=== PATIENT | male | born 1960 | race Caucasian/White ===

== ENCOUNTER → 2020-03-19 | Outpatient (CLI) | payer OTHER ==
--- NOTE | 2020-03-19 10:22 | MR ---
EXAMINATION TYPE: MR shoulder LT wo con DATE OF EXAM: 03/19/2020 COMPARISON: None HISTORY: Pain in left shoulder TECHNIQUE: Multiplanar, multisequence imaging of the left shoulder is performed without contrast. FINDINGS: Exam was not completed due to patient pain Rotator Cuff: There is abnormal increased signal noted within the rotator cuff. Undersurface signal i s noted on coronal image 17 suggesting a partial undersurface tear. Acromioclavicular Joint: Hypertrophic changes present. There is a distal acromial spur. Glenohumeral Joint: Osteoarthritic changes present, there is spurring, remodeling at the glenohumeral joint. There is subchondral geode formation present in the bony labrum Labrum: Labrum shows some abnormal increased intrinsic signal, there may be degenerative fraying, dif ficult to exclude tear Biceps Tendon: The long head of biceps is in normal location within bicipital groove. Bone marrow signal: Pseudocysts present within the humeral head. Other: Small joint effusion. Difficult to exclude synovial osteochondromatosis, loose body IMPRESSION: Exam is limited. Osteoarthritic changes. Findings suggest partial tear the rotator cuff as described. Correlate for impingement. Additional findings above.
== END | disposition home or self-care (01) ==
LOC: RADMRIMAIN 07:49
PROVIDERS: ATTEND Orthopaedic Surgery
DX: M19.012 Primary osteoarthritis, left shoulder (principal); M85.612 Other cyst of bone, left shoulder

== ENCOUNTER 2022-06-16 07:03 | Day surgery (SDC) | payer BC, OTHER ==
[~2022-06-16 07:03] MED LIST: ACETAMINOPHEN TAB 500 MG TAB PO PRN; DEXAMETHASONE SOD PHOSPHATE 4 MG/ML 1 ML VIAL IV ONE; HEPARIN SODIUM,PORCINE/PF 5,000 UNIT/0.5 ML SYRINGE SQ PRN; HYDROmorphone 0.5 MG/0.5 ML SYRINGE IVP PRN; LACTATED RINGERS 1,000 ML IV SCH; MIDAZOLAM 2 MG/2 ML VIAL IV PRN; ONDANSETRON 4 MG/2 ML VIAL IVP ONE; Pre Op ABX Message 1 EACH MISC MISCELLANE ONE; SCOPOLAMINE 1 MG/72 HR PATCH TRANSDERM ONE
[2022-06-16 07:25] VITALS: TEMP 97
--- NOTE | 2022-06-16 07:27 | P.GSHP ---
History of Present Illness H&P Date: 06/16/22 Chief Complaint: Right posterior neck mass 62-year-old male here for excision right posterior neck mass. Mass first noticed about 5-6 months ago. Increasing in size. Mild pain at times. No overlying skin changes. No history of similar events. Past Medical History Past Medical History: Hyperlipidemia, Hypertension Additional Past Medical History / Comment(s): arthritis from sports injuries. left shoulder cortisone shot. rt neck lipoma, a little achey at times. + Covid without sx early 2021. History of Any Multi-Drug Resistant Organisms: None Reported Additional Past Surgical History / Comment(s): rt knee surgery arthroscopic, left rotator cuff surgery, rt shoulder surgery(open). Past Anesthesia/Blood Transfusion Reactions: No Reported Reaction Additional Past Anesthesia/Blood Transfusion Reaction / Comment(s): no blood transfusions Smoking Status: Never smoker - Past Family History Father Family Medical History: Dementia Additional Family Medical History / Comment(s): pacemaker Mother Additional Family Medical History / Comment(s): parkinsons Medications and Allergies Home Medications Medication Instructions Recorded Confirmed Type Atorvastatin [Lipitor] 20 mg PO DAILY 06/12/22 06/12/22 History Losartan Potassium 100 mg PO DAILY 06/12/22 06/12/22 History amLODIPine [Norvasc] 10 mg PO DAILY 06/12/22 06/12/22 History hydroCHLOROthiazide 25 mg PO DAILY 06/12/22 06/12/22 History Allergies Allergy/AdvReac Type Severity Reaction Status Date / Time No Known Allergies Allergy Verified 06/16/22 07:19 Surgical - Exam Vital Signs Temp Pulse Resp BP Pulse Ox 97.0 F L 68 16 150/70 97 06/16/22 07:23 06/16/22 07:23 06/16/22 07:23 06/16/22 07:23 06/16/22 07:23 Physical exam: General: Well-developed, well-nourished HEENT: Normocephalic, sclerae nonicteric, right posterior neck with 3 x 2 synov ator subcutaneous mildly tender mass Abdomen: Nontender, nondistended Extremities: No edema Neuro: Alert and oriented Assessment and Plan (1) Neck mass Narrative/Plan: 62-year-old male with right posterior neck mass. We'll proceed with surgical excision at this time. Risks of bleeding, infection, recurrence, nerve injury reviewed. He understands and wishes to proceed. Current Visit: Yes Status: Acute Code(s): R22.1 - LOCALIZED SWELLING, MASS AND LUMP, NECK SNOMED Code(s): 613499735
[2022-06-16] MEDS ORDERED: LIDOCAINE 1% (10MG/ML) FOR IV START INTRADERMA ONE (07:44)
[2022-06-16] MEDS ORDERED: KETAMINE 10 MG/ML 20 ML VIAL ONE (08:11)
[2022-06-16] MEDS ORDERED: BUPIVACAIN-EPI 0.25%-1:200,000 30 ML VIAL SQ ONE ×2 (08:11→08:37)
[2022-06-16] MEDS ORDERED: fentaNYL (PF) 50 MCG/ML 2 ML AMP ONE (08:11)
[2022-06-16] MEDS ORDERED: PROPOFOL 10 MG/ML 20 ML VIAL IV ONE (08:11)
[2022-06-16] MEDS ORDERED: MIDAZOLAM 2 MG/2 ML VIAL ONE (08:11)
--- NOTE | 2022-06-16 09:08 | P.OP ---
Date of Procedure: 06/16/22 Procedure(s) Performed: PREOPERATIVE DIAGNOSIS: Right posterior neck mass POSTOPERATIVE DIAGNOSIS: Right posterior neck lipomatous mass 3.2 x 3 cm PROCEDURE: Excision right posterior neck lipoma, intermediate closure SURGEON: Navya EBL: 2 mL ANESTHESIA: Sedation and local COMPLICATIONS: None OPERATIVE PROCEDURE: Patient placed in the left cubitus position. Right posterior neck prepped and draped sterilely. Skin infiltrated with 1% lidocaine. Incision made overlying the palpable mass. Dissection through the subcutaneous tissues took place using electrocautery. The patient's lipomatous mass was fairly deep almost 2 cm deep to the skin surface. His measured 3.2 x 3 cm. This was excised using blunt and electrocautery. This was fully excised and sent to pathology. The subcutaneous tissues were then closed using interrupted 3-0 Vicryl sutures. The skin was closed using a running 4-0 Monocryl subcuticular suture. Skin glue was then applied. Length of intermediate closure 5 cm. DISPOSITION: Stable to recovery room
[2022-06-16 09:24] VITALS: BP 124/72; PULSE 58; RESP 16
== END 2022-06-16 09:57 | disposition home or self-care (01) ==
LOC: OR 07:03
PROVIDERS: ATTEND Surgery
DX: D17.0 Benign lipomatous neoplasm of skin and subcutaneous tissue of head, face and neck (principal); I10 Essential (primary) hypertension; E78.5 Hyperlipidemia, unspecified; M19.90 Unspecified osteoarthritis, unspecified site; Z86.16 Personal history of COVID-19; Z98.890 Other specified postprocedural states; Z81.8 Family history of other mental and behavioral disorders; Z79.02 Long term (current) use of antithrombotics/antiplatelets; Z79.899 Other long term (current) drug therapy
CPT/HCPCS: 21552; 88304; J2250; J1100; J0690; J2405; J3010; J2704; J1644

== ENCOUNTER → 2023-12-29 | Outpatient (CLI) | payer BC ==
--- NOTE | 2023-12-29 17:25 | CA ---
Transthoracic Echo Report Name: Bebeto Chen Age: 63 Gender: M : 1960 Exam Date: 12/29/2023 16:09 Exam Location: [facility] Ht (in): 75 Wt (lb): 300 Ordering Physician: Paul Wheat MD Attending/Referring Phys: Suad Henriquez [facility] Orthotist/Prosthetist Luma Trevizo RDCS Procedure CPT: Indications: I49.1 ATRIAL PREMATURE DEPOLARIZATION Cardiac Hx: Technical Quality: Fair Contrast 1: Total Dose (mL): Contrast 2: Total Dose (mL): MEASUREMENTS (Male / Female) Normal Values 2D ECHO LV Diastolic Diameter PLAX 4.9 cm 4.2 - 5.9 / 3.9 - 5.3 cm LV Systolic Diameter PLAX 3.1 cm IVS Diastolic Thickness 1.3 cm 0.6 - 1.0 / 0.6 - 0.9 cm LVPW Diastolic Thickness 1.3 cm 0.6 - 1.0 / 0.6 - 0.9 cm LV Relative Wall Thickness 0.5 RV Internal Dim ED PLAX 3.4 cm LA Systolic Diameter LX 5.0 cm 3.0 - 4.0 / 2.7 - 3.8 cm LV Diastolic Volume MOD BP 69.2 cm??? 67 - 155 / 56 - 104 cm??? LV Systolic Volume MOD BP 30.7 cm??? 22 - 58 / 19 - 49 cm??? LV Ejection Fraction MOD BP 55.7 % >= 55 % LV Cardiac Index MOD BP 959.0 cm???/min???m??? LV Diastolic Volume MOD 4C 83.9 cm??? LV Systolic Volume MOD 4C 30.8 cm??? LV Ejection Fraction MOD 4C 63.3 % LV Cardiac Index MOD 4C 1322.8 cm???/min???m??? LV Diastolic Length 4C 7.6 cm LV Systolic Length 4C 6.1 cm LV Diastolic Volume MOD 2C 53.0 cm??? LV Systolic Volume MOD 2C 29.2 cm??? LV Ejection Fraction MOD 2C 44.8 % LV Cardiac Index MOD 2C 590.9 cm???/min???m??? LV Diastolic Length 2C 7.0 cm LV Systolic Length 2C 6.5 cm LA Volume 56.2 cm??? 18 - 58 / 22 - 52 cm??? LA Volume Index 20.6 cm???/m??? 16 - 28 cm???/m??? M-MODE Aortic Root Diameter MM 3.2 cm LA Systolic Diameter MM 4.3 cm LA Ao Ratio MM 1.4 AV Cusp Separation MM 2.1 cm DOPPLER AV Peak Velocity 174.0 cm/s AV Peak Gradient 12.1 mmHg AI Peak Velocity 288.5 cm/s AI Peak Gradient 33.3 mmHg AI Pressure Half Time 793.1 ms MV Area PHT 2.9 cm??? Mitral E Point Velocity 56.6 cm/s Mitral A Point Velocity 66.4 cm/s Mitral E to A Ratio 0.9 MV Deceleration Time 260.5 ms TR Peak Velocity 295.6 cm/s TR Peak Gradient 35.0 mmHg Right Ventricular Systolic Press 39.1 mmHg FINDINGS Left Ventricle Left ventricular ejection fraction is estimated at 60-65 %. Mildly increased septal wall thickness. Left ventricular cavity size normal. No obvious regional wall motion abnormalities. Right Ventricle Mild right ventricular dilatation. Mild pulmonary hypertension. Right Atrium Mild right atrial dilatation. Left Atrium Moderately increased left atrial diameter. Mildly increased left atrial area. Mitral Valve Structurally normal mitral valve. Mild mitral regurgitation. No mitral stenosis. Aortic Valve Trileaflet aortic valve. Mild aortic regurgitation. No aortic stenosis. Tricuspid Valve Structurally normal tricuspid valve. Moderate tricuspid regurgitation. No tricuspid stenosis. Pulmonic Valve Structurally normal pulmonic valve. Trace pulmonic regurgitation. No pulmonic stenosis. Pericardium Echo free space anterior to the right ventricle likely represents a fat pad. Aorta Normal size aortic root and proximal ascending aorta. CONCLUSIONS Normal LV function Mild pulmonary hypertension Mild mitral and moderate tricuspid regurgitation Mild aortic regurgitation Previewed by: Dr. Nakul Driscoll MD (Electronically Signed) Final Date: 29 December 2023 17:24
== END | disposition home or self-care (01) ==
LOC: RADECHMAIN 15:52
PROVIDERS: ATTEND Family Medicine
DX: I08.3 Combined rheumatic disorders of mitral, aortic and tricuspid valves (principal); I49.1 Atrial premature depolarization; I27.20 Pulmonary hypertension, unspecified
CPT/HCPCS: 93306

== ENCOUNTER → 2024-03-11 | Outpatient (CLI) | payer OTHER ==
--- NOTE | 2024-03-11 13:12 | CA ---
Lexiscan Nuclear Stress Test Report Name: Bebeto Chen Exam Date: 03/11/2024 10:05 Exam Location: [facility] Ht (in): 75 Wt (lb): 300 BSA: 2.61 Ordering Phys: Colby Madsen MD Referring Phys: TAMMI Technologist: Evaristo Smith Age: 63 Gender: M : 1960 Procedure CPT: Indications: I10 HYPERTENSION Z01.818 PRE SURGICAL I07.1 ICD-10 Codes: Patient History: Medications: LOSARTAN, AMLODIPINE, HYDROCHLOROTHIAZIDE, ATORVASTATIN Meds past 24 hrs: Pretest Chest Pain: STRESS TEST Lexiscan Protocol Exercise Duration (min:sec): 02:[address] Depressions (mm): Angina Score: Swain Score: Resting HR (bpm): 69 Peak HR (bpm): 83 Resting BP (mmHg): 136 / 67 Peak BP (mmHg): / 56 MPHR: 158 Target HR: 134 % MPHR: 53 METS: 1.0 Total Dose: Peak Dose: Atropine: Double Product: BP Response: Stress Termination: INFUSION COMPLETE Stress Symptoms: NO SYMPTOMS Stress Summary: ECG ANALYSIS Resting ECG: Stress ECG: CONCLUSIONS RESTING EKG: [Normal sinus rhythm, normal EKG] , Heart rate [] BPM Patient recieved IV infusion of Lexiscan 0.4mg and at peak infusion STRESS EKG showed: [No significant ST-T wave changes diagnostic for ischemia by ST segment analysis] ARRYTHMIAS: Occasional PVCs noticed. No sustained arrhythmias CONCLUSION: 1. Normal hemodynamic and clinical response to Lexiscan infusion. 2. Non-ischemic EKG response to lexiscan infusion Please refer to the nuclear imaging portion of this stress test for complete interpretation of the study. Dr Dago Be (Electronically Signed) Final Date: 11 March 2024 13:11
--- NOTE | 2024-03-11 19:13 | NM ---
EXAMINATION TYPE: NM stress lexiscan cardiolite DATE OF EXAM: 03/11/2024 COMPARISON: NONE HISTORY: Hypertension, presurgical evaluation TECHNIQUE: After the intravenous administration of 10.6 mCi Tc 99m Sestamibi - Cardiolite resting SP ECT images acquired 45 minutes post injection. At peak stress 25.5 mCi Tc 99m Sestamibi - Stress images obtained 30 minutes post injection The patient was stressed with 0.4mg Lexiscan. FINDINGS: There is a small defect along the inferior lateral wall extending into the cardiac apex within the di stal left ventricle. This may have some mild peripheral reversibility on resting images. Small infarc t along the inferior lateral wall. Stress-induced ischemic change may be present in this small area. Wall motion is normal Ejection fraction is calculated to be 47 %, which is low. Normal greater than 50%. IMPRESSION: 1. 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
== END | disposition home or self-care (01) ==
LOC: RADNMMAIN 08:25
PROVIDERS: ATTEND Internal Medicine Clinical Cardiac Electrophysiology
DX: Z01.818 Encounter for other preprocedural examination (principal); I10 Essential (primary) hypertension; I07.1 Rheumatic tricuspid insufficiency
CPT/HCPCS: 93017; 78452; A9500

== ENCOUNTER 2024-04-08 10:27 | Day surgery (SDC) | payer OTHER ==
[~2024-04-08 10:27] MED LIST changes: -ACETAMINOPHEN TAB 500 MG TAB PO PRN; +ALPRAZolam 0.25 MG TAB PO PRN; +ALPRAZolam 0.5 MG TAB PO PRN; +ASPIRIN 325 MG TAB PO ONE; +ATORVASTATIN 80 MG TAB PO ONE; -DEXAMETHASONE SOD PHOSPHATE 4 MG/ML 1 ML VIAL IV ONE; +HEPARIN SODIUM,PORCINE (1 ML) 2,500 UNIT in SODIUM CHLORIDE 0.9% 250 ML IRRIGATION PRN; +HEPARIN SODIUM,PORCINE 10,000 UNIT in SODIUM CHLORIDE 0.9% 1,000 ML IRRIGATION PRN; -HEPARIN SODIUM,PORCINE/PF 5,000 UNIT/0.5 ML SYRINGE SQ PRN; -HYDROmorphone 0.5 MG/0.5 ML SYRINGE IVP PRN; -LACTATED RINGERS 1,000 ML IV SCH; -MIDAZOLAM 2 MG/2 ML VIAL IV PRN; +NITROGLYCERIN SL TABS 0.4 MG TAB SUBLINGUAL PRN; -ONDANSETRON 4 MG/2 ML VIAL IVP ONE; -Pre Op ABX Message 1 EACH MISC MISCELLANE ONE; -SCOPOLAMINE 1 MG/72 HR PATCH TRANSDERM ONE; +SODIUM CHLORIDE 0.9% 1,000 ML in EMPTY BAG 1 BAG IV SCH
[2024-04-08 10:56] VITALS: RESP 18; TEMP 98.2
[2024-04-08] MEDS: IV FLUID CONTINUATION 1,000 ML IV ONE (10:56)
[2024-04-08] MEDS: MIDAZOLAM 2 MG/2 ML VIAL IVP ONE (12:00)
[2024-04-08] MEDS: fentaNYL (PF) 50 MCG/ML 2 ML AMP IVP ONE (12:00)
[2024-04-08] MEDS: LIDOCAINE 1% INJ 10MG/ML (20 ML MDV) SQ ONE (12:03)
[2024-04-08 12:04] LABS: African American GFR (CKD) 75 (>60 ml/min/1.73 sqM); Anion Gap 5 mmol/L; Basophils % (A) 0 %; Blood Urea Nitrogen 18 mg/dL (9-20); Calcium 9.2 mg/dL (8.4-10.2); Carbon Dioxide 27 mmol/L (22-30); Chloride 108 mmol/L (98-107); Eosinophils # (A) 0.2 k/uL (0-0.7); Eosinophils % (A) 2 %; Glucose 88 mg/dL (74-99); HCT 46.1 % (39.0-53.0); HGB 15.6 gm/dL (13.0-17.5); Lymphocytes # (A) 1.6 k/uL (1.0-4.8); Lymphocytes % (A) 17 %; MCH 31.4 pg (25.0-35.0); MCHC 33.9 g/dL (31.0-37.0); MCV 92.6 fL (80.0-100.0); Mean Platelet Volume 8.8; Monocytes # (A) 0.5 k/uL (0-1.0); Monocytes % (A) 6 %; Neutrophils # (A) 6.7 k/uL (1.3-7.7); Neutrophils % (A) 73 %; Non-African American GFR(CKD) 65 (>60 ml/min/1.73 sqM); Platelet Count 225 k/uL (150-450); Potassium 3.7 mmol/L (3.5-5.1); RBC 4.98 m/uL (4.30-5.90); RDW 12.1 % (11.5-15.5); Sodium 140 mmol/L (137-145); WBC 9.2 k/uL (3.8-10.6)
[2024-04-08] MEDS: VERAPAMIL SYRINGE (5 MG/10 ML) INTRAARTER ONE (12:06)
[2024-04-08] MEDS: HEPARIN SODIUM,PORCINE 10,000 UNIT in SODIUM CHLORIDE 0.9% 1,000 ML IRRIGATION ONE (12:07)
[2024-04-08] MEDS: HEPARIN SODIUM,PORCINE (1 ML) 2,500 UNIT in SODIUM CHLORIDE 0.9% 250 ML IRRIGATION ONE (12:08)
[2024-04-08] MEDS: HEPARIN SODIUM 1,000 UN/ML (10ML VL) IVP ONE (12:10)
[2024-04-08] MEDS: IOPAMIDOL-370 100ML BTL INJ ONE (12:20)
--- NOTE | 2024-04-08 12:28 | P.CARDCATH ---
Date of Procedure: 04/08/24 Description of Procedure: DIAGNOSTIC CORONARY ANGIOGRAPHY and LEFT HEART CATH REPORT PROCEDURES PERFORMED: Left heart catheterization Selective coronary angiography Moderate conscious sedation 18 mins Right radial access INDICATION: Positive nuclear stress test Patient was seen in the cardiology office for preoperative cardiac risk assessment. Because of his risk factors we performed a nuclear stress test on him which showed reversible perfusion defect in the inferior wall. For this he was scheduled for a heart catheterization procedure. CONSENT: I have explained the procedural steps of above-mentioned procedures in layman's terms to the patient. I discussed the risks (including but not limited to stroke, emergent vascular or cardiac surgery or ), benefits and alternative therapies for the above-mentioned procedure. I discussed the risks of sedation/analgesia and blood product administration (if indicated). The patient has indicated understanding and acceptance of these risks. Conscious Sedation: Patient's ECG, heart rate, blood pressure, pulse oximetry were monitored throughout the duration of procedure under my direct supervision. [2] mg Versed and [50] mcg Fentanyl were used for induction of moderate conscious sedation. Total duration of moderate concious sedation 18 minutes. PROCEDURE: After explaining the risks, benefits and alternatives of the above mentioned procedures in detail to the patient, informed consent was obtained. Patient was taken to the catheterization lab, prepped and draped in usual sterile fashion using universal precuations. Ultrasound was used to identify the radial artery. 1% lidocaine was infiltrated over the right radial artery. A 6-Croatian sheath was placed and secured in the right radial artery using modified Seldinger technique. The sheath was flushed and 5 mg verapamil was administered intra-arterially. J tipped wire was advanced under fluoroscopic guidance. Once the wire tip reached aortic root 7000 units of IV heparin was given. Over the wire JR4 diagnostic catheter was advanced. The wire in place the catheter was manipulated to cross the aortic valve and entered into LV under fluoroscopy guidance. The wire was removed and the catheter was flushed. LV pressures were obtained and pullback was performed under fluoroscopy. Catheter was manipulated to selectively engage the right coronary ostium. Right coronary angiography was performed in different angiographic projections. The JR4 diagnostic catheter was exchanged for a JL 3.5 diagnostic catheter over the J-wire. The wire was removed, catheter was flushed and manipulated under fluoroscopy to selectively engaged the left coronary ostium. Left coronary angioplasty was performed in different angiographic projections. Catheter was removed over the wire. Radial sheath was flushed. The right radial sheath was removed and a TR band was placed with excellent patent hemostasis was achieved. The patient tolerated the procedure well. Patient was transported back to the post catheterization holding area in stable condition. Angiographic images were reviewed in detail. HEMODYNAMICS: Aortic Pressure: 150/80 mmHg. LV pressure: 154/10 mmHg. LVEDP 15 mmHg. There was no significant gradient across the aortic valve. SELECTIVE CORONARY ARTERIOGRAPHY: LEFT MAIN: The left main is short and large caliber vessel. It bifurcates into the LAD and circumflex. Left main appears angiographically normal. LEFT ANTERIOR DESCENDING CORONARY ARTERY: LAD is a large caliber vessel which wraps around to the apex. Proximal LAD appears angiographically normal. Mid LAD appears angiographically normal. Distal LAD appears angiographically normal. It gives rise to a large diagonal branch which appears angiographically normal. LEFT CIRCUMFLEX CORONARY ARTERY: It is nondominant vessel. Left circumflex is a moderate caliber vessel. It appears angiographically normal. LCx gives a "very high" OM1 branch which is a large-caliber vessel and appears angiographically normal. After giving OM branch, LCx becomes a moderate caliber vessel and gives the AV groove branch and distal small OM branches. They appear angiographically normal. 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 Dominant vessel. The right coronary artery is a large caliber vessel which gives PDA and PLV branch. It appears angiographically normal. It gives rise to PDA and PL branches which appears angiographically normal. IMPRESSION: Angiographically normal coronary arteries as described above. Normal left sided filling pressures PLAN: 125 cc fluids for 4 hours Discharge home in 4 hours Follow-up in the office in 1-2 weeks. Performing Physician Dago Be MD, FACC, RPVI Thank you for allowing [facility] to participate in this patient's care. Feel free to reach out in case of any followup questions.
[2024-04-08] MEDS ORDERED: RX INFO: IV CONTRAST WAS GIVEN 1 EACH MISC MISCELLANE PRN (12:31)
[2024-04-08] MEDS ORDERED: SODIUM CHLORIDE 0.9% 1,000 ML IV SCH (12:45)
[2024-04-08 15:11] VITALS: BP 150/73; PULSE 66
== END 2024-04-08 15:28 | disposition home or self-care (01) ==
LOC: CATHCVL 10:27
PROVIDERS: ATTEND Student in an Organized Health Care Education/Training Program
DX: I36.1 Nonrheumatic tricuspid (valve) insufficiency (principal); I10 Essential (primary) hypertension; E66.89 Other obesity not elsewhere classified; Z68.35 Body mass index [BMI] 35.0-35.9, adult; Z82.49 Family history of ischemic heart disease and other diseases of the circulatory system; Z79.02 Long term (current) use of antithrombotics/antiplatelets; Z79.899 Other long term (current) drug therapy
CPT/HCPCS: 80048; 85025; 93458; 99152; 99153; J2250; J1644 ×3; J2003; J3010; Q9967